=== PATIENT | female | born 1955 | race Caucasian/White ===

== ENCOUNTER → 2019-03-11 | Outpatient (CLI) | payer OTHER ==
[~2019-03-11] MED LIST: BENICAR20 MG PO; CLONAZEPAM PO; LEXAPRO 10 MG T10 MG PO; LIPITOR20 MG PO; NORCO 5-325 TA1 EACH PO; PHENERGAN 25 MG25 M1 PO; PRINZIDE 20-121 EACH PO; WELLBUTRIN XL150 M1 PO; [UNRECOGNIZED DRUG - OTHER]
== END ==
LOC: CAT 14:53
DX: Z13.6 Encounter for screening for cardiovascular disorders (principal); E78.00 Pure hypercholesterolemia, unspecified; I25.10 Atherosclerotic heart disease of native coronary artery without angina pectoris

== ENCOUNTER → 2020-09-09 | Outpatient (CLI) | payer OTHER, MEDICARE | LOC: SJCVCIMAG 08-31 14:21 | PROVIDERS: ATTEND Internal Medicine Cardiovascular Disease | DX: I10 Essential (primary) hypertension (principal); E78.5 Hyperlipidemia, unspecified; Z85.3 Personal history of malignant neoplasm of breast; R53.83 Other fatigue ==